=== PATIENT | female | born 1970 | race Caucasian/White ===

== ENCOUNTER → 2018-07-16 | Outpatient (CLI) | payer MEDICARE, BC ==
[2018-07-16 10:45] LABS: ALT 37 U/L (9-52); AST 28 U/L (14-36); Albumin 4.1 g/dL (3.5-5.0); Alkaline Phosphatase 129 U/L (38-126); Anion Gap 12 mmol/L; Blood Urea Nitrogen 15 mg/dL (7-17); Calcium 9.2 mg/dL (8.4-10.2); Carbon Dioxide 19 mmol/L (22-30); Chloride 108 mmol/L (98-107); Cholesterol 233 mg/dL (<200); Glucose 221 mg/dL (74-99); HDL Cholesterol 40 mg/dL (40-60); LDL Cholesterol,Calculated 116 mg/dL (0-99); Potassium 4.6 mmol/L (3.5-5.1); Sodium 139 mmol/L (137-145); Total Bilirubin 0.6 mg/dL (0.2-1.3); Total Protein 7.2 g/dL (6.3-8.2); Triglycerides 387 mg/dL (<150)
[2018-07-16 19:34] LABS: Hemoglobin A1C 9.3 % (4.0-6.0)
== END | disposition home or self-care (01) ==
LOC: LABWHC1 08:23
PROVIDERS: ATTEND Family Medicine
DX: E11.9 Type 2 diabetes mellitus without complications (principal); J44.9 Chronic obstructive pulmonary disease, unspecified
CPT/HCPCS: 36415; 80053; 80061; 83036

== ENCOUNTER → 2019-05-09 | Outpatient (CLI) | payer MEDICARE, BC | END | disposition home or self-care (01) | LOC: LABWHC1 12:15 | PROVIDERS: ATTEND Internal Medicine Critical Care Medicine | DX: J45.50 Severe persistent asthma, uncomplicated (principal) | CPT/HCPCS: 36415; 82785 ==

== ENCOUNTER → 2019-12-04 | Outpatient (CLI) | payer MEDICARE, BC ==
[2019-12-04 11:14] LABS: Microalbumin Creatinine Ratio <30 mg/g Creat (0-30); Urine Creatinine 66.1 mg/dL
[2019-12-04 11:45] LABS: African American GFR (CKD) 123.2 (60.0-200.0); Albumin 4.5 g/dL (3.80-4.90); Albumin/Globulin Ratio 2.25 (1.60-3.17); Anion Gap 8.4 mmol/L (4.00-12.00); BUN/Creat Ratio 21.67 Ratio (12.00-20.00); Calcium 9.4 mg/dL (8.7-10.3); Carbon Dioxide 23.6 mmol/L (21.6-31.8); Chol/HDL Ratio 3.98; Non-African American GFR(CKD) 106.3 (60.0-200.0); Total Bilirubin 0.4 mg/dL (0.2-1.2); Total Protein 6.5 g/dL (6.2-8.2)
== END | disposition home or self-care (01) ==
LOC: LABWHC1 07:17
PROVIDERS: ATTEND Internal Medicine Endocrinology, Diabetes & Metabolism
DX: E11.65 Type 2 diabetes mellitus with hyperglycemia (principal)
CPT/HCPCS: 36415; 80053; 80061; 82043; 82570; 84443

== ENCOUNTER → 2020-06-20 | Outpatient (CLI) | payer MEDICARE, BC ==
[2020-06-20 11:12] LABS: African American GFR (CKD) 123.2 (60.0-200.0); Albumin 4.2 g/dL (3.80-4.90); Albumin/Globulin Ratio 2.1 (1.60-3.17); Anion Gap 10.3 mmol/L (4.00-12.00); BUN/Creat Ratio 28.33 Ratio (12.00-20.00); Calcium 8.9 mg/dL (8.7-10.3); Carbon Dioxide 24.7 mmol/L (21.6-31.8); Chol/HDL Ratio 3.13; LDL Cholesterol,Calculated 126.4 mg/dL (0.0-131.0); Non-African American GFR(CKD) 106.3 (60.0-200.0); Total Bilirubin 0.3 mg/dL (0.2-1.2); Total Protein 6.2 g/dL (6.2-8.2); VLDL Calculation 18.6 mg/dL (5.00-40.00)
[2020-06-20 11:41] LABS: Urine Creatinine 64.9 mg/dL
[2020-06-20 16:12] LABS: Hemoglobin A1C 7.1 % (4.0-6.0)
== END | disposition home or self-care (01) ==
LOC: LABWHC1 07:09
PROVIDERS: ATTEND Internal Medicine Endocrinology, Diabetes & Metabolism
DX: E11.65 Type 2 diabetes mellitus with hyperglycemia (principal)
CPT/HCPCS: 36415; 80053; 80061; 82043; 82570; 83036; 84443

== ENCOUNTER → 2022-08-18 | Outpatient (CLI) | payer MEDICARE ==
--- NOTE | 2022-08-19 08:15 | MM ---
Reason for Exam: Screening (asymptomatic). Last mammogram was performed 9 year(s) and 0 month(s) ago. Patient History: Menarche at age 9. Patient has no children. Right ovary removed at age 27. Hysterectomy at age 32. Postmenopausal. Maternal aunt had breast cancer. Maternal aunt had breast cancer. Maternal aunt had breast cancer. Risk Values: Natalie 5 year model risk: 1.3%. NCI Lifetime model risk: 10.5%. Prior Study Comparison: 08/25/2013 Bilateral Screening Mammogram, [facility]. Tissue Density: The breast tissue is almost entirely fat. Findings: Analyzed By CAD. Left inframammary lymph node. There is no suspicious group of microcalcifications or new suspicious mass in either breast. Overall Assessment: Benign, BI-RAD 2 Management: Screening Mammogram of both breasts in 1 year. A clinical breast exam by your physician is recommended on an annual basis and results should be correlated with mammographic findings. [facility] will attempt to contact patient to return for supplemental views and ultrasound if indicated. Electronically signed and approved by: Isrrael Khoury DO
== END | disposition home or self-care (01) ==
LOC: RADMAMWWP 13:07
PROVIDERS: ATTEND Family Medicine
DX: Z12.31 Encounter for screening mammogram for malignant neoplasm of breast (principal); Z78.0 Asymptomatic menopausal state; Z80.3 Family history of malignant neoplasm of breast; Z90.721 Acquired absence of ovaries, unilateral
CPT/HCPCS: 77067

== ENCOUNTER → 2023-09-28 | Outpatient (CLI) | payer MEDICARE ==
--- NOTE | 2023-09-29 12:19 | MM ---
Reason for Exam: Screening (asymptomatic). Last mammogram was performed 1 year(s) and 1 month(s) ago. Patient History: Menarche at age 9. Patient has no children. Right ovary removed at age 27. Hysterectomy at age 32. Postmenopausal. Maternal aunt had breast cancer. Maternal aunt had breast cancer. Maternal aunt had breast cancer. Risk Values: Natalie 5 year model risk: 1.3%. NCI Lifetime model risk: 10.3%. Prior Study Comparison: 08/25/2013 Bilateral Screening Mammogram, [facility]. 08/18/2022 Bilateral MG screening mammo w CAD, [facility]. Tissue Density: The breast tissue is almost entirely fat. Findings: Analyzed By CAD. There is no suspicious group of microcalcifications or new suspicious mass. Overall Assessment: Negative, BI-RAD 1 Management: Screening Mammogram of both breasts in [address] [facility] will attempt to contact patient to return for supplemental views and ultrasound if indicated. Patient should continue monthly self-breast exams. A clinical breast exam by your physician is recommended on an annual basis. This exam should not preclude additional follow-up of suspicious palpable abnormalities. Note on Natalie scores and lifetime risk: 1. A Natalie score greater than 3% is considered moderate risk. If this is the case, consider specialist referral to assess eligibility for a risk reducing agent. 2. If overall lifetime risk for the development of breast cancer is 20% or higher, the patient may qualify for future screening with alternating mammogram and breast MRI. Electronically signed and approved by: Isrrael Khoury DO
== END | disposition home or self-care (01) ==
LOC: RADMAMWWP 06:53
PROVIDERS: ATTEND Family Medicine
DX: Z12.31 Encounter for screening mammogram for malignant neoplasm of breast (principal); Z78.0 Asymptomatic menopausal state; Z80.3 Family history of malignant neoplasm of breast
CPT/HCPCS: 77063; 77067

== ENCOUNTER → 2025-02-21 | Outpatient (CLI) | payer MEDICARE ==
--- NOTE | 2025-02-21 09:49 | MM ---
Reason for Exam: Screening (asymptomatic). Last mammogram was performed 1 year(s) and 5 month(s) ago. Patient History: Menarche at age 9. Patient has no children. Right ovary removed at age 27. Hysterectomy at age 32. Postmenopausal. Maternal aunt had breast cancer. Maternal aunt had breast cancer. Maternal aunt had breast cancer. Mother had breast cancer at or over age 50. Risk Values: Natalie 5 year model risk: 2.5%. NCI Lifetime model risk: 16.9%. Prior Study Comparison: 08/25/2013 Bilateral Screening Mammogram, [facility]. 08/18/2022 Bilateral MG screening mammo w CAD, [facility]. 09/28/2023 Bilateral MG 3D screening mammo w/cad, [facility]. Tissue Density: The breasts are almost entirely fatty. Findings: Analyzed By CAD. Right breast: Stable probable cyst back to 08/18/2022 in the inferior aspect MLO view anterior depth. There is no suspicious group of microcalcifications or new suspicious mass. Left breast: There is no suspicious group of microcalcifications or new suspicious mass. Overall Assessment: Benign, BI-RAD 2 Management: Screening Mammogram of both breasts in [address] [facility] will attempt to contact patient to return for supplemental views and ultrasound if indicated. Patient should continue monthly self-breast exams. A clinical breast exam by your physician is recommended on an annual basis. This exam should not preclude additional follow-up of suspicious palpable abnormalities. Note on Natalie scores and lifetime risk: 1. A Natalie score greater than 3% is considered moderate risk. If this is the case, consider specialist referral to assess eligibility for a risk reducing agent. 2. If overall lifetime risk for the development of breast cancer is 20% or higher, the patient may qualify for future screening with alternating mammogram and breast MRI. [facility], , 02/21/2025 9:46 AM. Electronically signed and approved by: Isrrael Khoury DO
== END | disposition home or self-care (01) ==
LOC: RADMAMWWP 09:18
PROVIDERS: ATTEND Family Medicine
DX: Z12.31 Encounter for screening mammogram for malignant neoplasm of breast (principal); R92.313 Mammographic fatty tissue density, bilateral breasts; Z80.3 Family history of malignant neoplasm of breast; Z78.0 Asymptomatic menopausal state
CPT/HCPCS: 77063; 77067